=== PATIENT | male | born 2000 | race Caucasian/White ===

== ENCOUNTER 2022-03-12 08:00 | Outpatient (CLI) | payer OTHER ==
--- NOTE | 2022-03-12 17:23 | XRAY Report ---
PROCEDURE: Foot 3 View RT INDICATIONS: R FOOT PX TECHNIQUE: 3 views of the foot were acquired. COMPARISON: None FINDINGS: Bones: No fractures or dislocations. No suspicious bony lesions. Mild hallux valgus alignment and medial bunion. Mild first MTP and diffuse interphalangeal joint space narrowing with articular osteop hyte formation. Soft tissues: No tibiotalar joint effusion. Achilles tendon appears normal. IMPRESSION: 1. Mild hallux valgus alignment and medial bunion. 2. 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 Reviewed by: YUSEF Martin on 03/12/2022 5:22 PM PDT Approved by: Rima Durbin MD on 03/12/2022 5:22 PM PDT Station ID: [id number]
--- NOTE | 2022-03-12 17:24 | XRAY Report ---
PROCEDURE: Ankle 3 View RT INDICATIONS: SPRAIN OF R ANKLE TECHNIQUE: 3 views of the ankle were acquired. COMPARISON: None FINDINGS: Bones: No fractures or dislocations. Ankle mortise is normally aligned. No suspicious bony lesions . Soft tissues: No tibiotalar joint effusion. Achilles tendon appears normal. IMPRESSION: No fracture or dislocation. If pain persist with conservative management, consider CT or MRI. Reviewed by: YUSEF Martin on 03/12/2022 5:22 PM PDT Approved by: Rima Durbin MD on 03/12/2022 5:22 PM PDT Station ID: [id number]
== END 2022-03-12 23:59 | disposition home or self-care (01) ==
LOC: DI.N 08:00
PROVIDERS: ATTEND Family Medicine
DX: S93.491A Sprain of other ligament of right ankle, initial encounter (principal); M20.11 Hallux valgus (acquired), right foot; M21.611 Bunion of right foot; M19.071 Primary osteoarthritis, right ankle and foot

== ENCOUNTER 2022-09-17 09:23 | Emergency (ER) | payer OTHER ==
--- NOTE | 2022-09-17 10:13 | XRAY Report ---
PROCEDURE: Wrist 4 View LT INDICATIONS: Trauma TECHNIQUE: 4 views of the wrist were acquired. COMPARISON: None FINDINGS: Bones: No fractures or dislocations. No suspicious bony lesions. Scaphoid view: Scaphoid intact Soft tissues: No suspicious soft tissue calcifications. IMPRESSION: No evidence acute bony abnormality of the left wrist. If clinical suspicion and/or symptoms persist, further assessment with repeat plain films or advanced imaging (e.g., CT, MRI, or bone scan) may be helpful for further assessment. Reviewed by: Jason Johnston MD on 09/17/2022 10:11 AM PST Approved by: Jason Johnston MD on 09/17/2022 10:11 AM PST Station ID: [id number]
--- NOTE | 2022-09-17 10:16 | XRAY Report ---
PROCEDURE: Elbow 3 View LT INDICATIONS: Trauma TECHNIQUE: 3 views of the elbow were acquired. COMPARISON: None FINDINGS: Bones: Question impacted radial neck fracture. No suspicious bony lesions. Soft tissues: Positive elbow joint effusion. No suspicious soft tissue calcifications. IMPRESSION: Elbow joint effusion. Question impacted radial neck fracture. Reviewed by: Jason Johnston MD on 09/17/2022 10:14 AM [facility] Approved by: Jason Johnston MD on 09/17/2022 10:14 AM [facility] Station ID: [id number]
--- NOTE | 2022-09-17 11:20 | ED Physician Documentation ---
PD HPI UPPER EXT INJURY - Stated complaint Stated Complaint: LT ARM INJ - Chief complaint Chief Complaint: Trauma Ext - History obtained from History obtained from: Patient - Additonal information Additional information: This is a 22-year-old male with no significant past medical history who slipped on ice and fell onto his left elbow earlier today. He stated the brunt of the force hit the left elbow and then he rolled onto the left wrist. He denies any other injuries, did not hit his head or lose consciousness. He presents now with left old pain particularly with range of motion and some mild left wrist pain. He is a right-handed individual. Review of Systems Ten Systems: 10 systems reviewed and negative (except as noted in HPI) PD PAST MEDICAL HISTORY - Past Medical History Past Medical History: No - Present Medications Home Medications: Ambulatory Orders Medication Instructions Recorded Confirmed No Known Home Medications 09/17/22 09/17/22 - Allergies Allergies/Adverse Reactions: Allergies Allergy/AdvReac Type Severity Reaction Status Date / Time No Known Drug Allergies Allergy Verified 09/17/22 09:36 PD ED PE NORMAL - Vitals Vital signs reviewed: Yes - General General: Alert and oriented X 3, No acute distress, Well developed/nourished - HEENT HEENT: Atraumatic, Pharynx benign - Cardiac Cardiac: RRR, No murmur - Respiratory Respiratory: No respiratory distress, Clear bilaterally - Derm Derm: Normal color, Warm and dry - Extremities Extremities: No deformity. No: No tenderness to palpate (Left elbow mildly swollen and generally tender to palpation. He is able to flex and extend not uncomfortable. No obvious deformity to the left upper arm, shoulder, forearm, wrist, hand. Mild pain with palpation of the left wrist without swelling. No erythema or abrasions.), Normal ROM s pain - Neuro Neuro: Alert and oriented X 3 Eye Opening: Spontaneous Motor: Obeys Commands Verbal: Oriented GCS Score: 15 Results - Vitals Vitals: Vital Signs - 24 hr 09/17/22 09/17/22 09:33 11:34 Temperature 36.3 C L 37.2 C Heart Rate 75 77 Respiratory 14 16 Rate Blood Pressure 128/78 143/80 H O2 Saturation 97 99 Oxygen O2 Source Room air PD MEDICAL DECISION MAKING - ED course Complexity details: reviewed results, re-evaluated patient, d/w patient ED course: Patient presented with left elbow pain after slip and fall. His tenderness and mild swelling around the left elbow but no other injuries. We obtain x-rays of elbow and the left wrist. The left elbow x-ray is suspicious for possible impacted radial head fracture and there is a left elbow effusion, no other findings. His left wrist is normal. We placed him in a posterior long-arm splint at about 90 degrees and sling. The patient was advised to use Tylenol, ibuprofen, cool compress to help with pain and swelling. I recommended that he follow-up with Ortho or his PCP in the next week or so have repeat x-ray done as it was not clearly A fracture. He is given a work note to limit left arm activity until follow-up with PCP or Ortho. Departure - Departure Disposition: 01 Home, Self Care Condition: Good Instructions: ED Fx Radial Head Follow-Up: Kev Meredith MD [Provider Admit Priv/Credential] - Comments: As we discussed, the x-ray shows a possible fracture of the radial head which is in the elbow region. You do have some joint effusion there which will cause swelling and discomfort. This should dissipate over time. We have placed you in a splint and sling and you should use this for the next week until you follow-up with your primary doctor or orthopedic surgeon at which time they may rafat-ray the elbow to evaluate for fracture. The wrist x-ray is normal. You can continue regular activities except he will not be able to use your left arm for now until injury healed. Forms: Activity restrictions Discharge Date/Time: 09/17/22 11:54
[2022-09-17 11:35] VITALS: BP 143/80
== END 2022-09-17 11:54 | disposition home or self-care (01) ==
LOC: ED 09:23
DX: S59.902A Unspecified injury of left elbow, initial encounter (principal); W00.0XXA Fall on same level due to ice and snow, initial encounter
CPT/HCPCS: 99283